=== PATIENT | male | born 1950 | race Caucasian/White ===

== ENCOUNTER 2024-01-19 13:46 | Emergency (ER) | payer BC, MEDICARE ==
[~2024-01-19] VITALS: Ht 181.6 cm; Wt 86.4 kg
[~2024-01-19 13:46] MED LIST: ASPI81TA52 PO; ATOR20TA PO; CYCL-1 PO; FENT1PAT13 TD; METF-436; NORCO10T PO; [UNRECOGNIZED DRUG - CODE] PO
[2024-01-19 13:47] VITALS: BP 159/101; PULSE 98; TEMP 98.2; O2SAT 99
[2024-01-19 15:34] VITALS: RESP 18
[2024-01-19] MEDS: HYDROcodone/acetaminophen 10/325mg tab PO ONE (15:34)
[2024-01-19] MEDS ORDERED: HYDR-3973 PO (16:10)
== END 2024-01-19 16:30 | disposition home or self-care (01) ==
LOC: ER 13:47
DX: M54.2 Cervicalgia (principal); M54.9 Dorsalgia, unspecified; I50.9 Heart failure, unspecified; Z79.82 Long term (current) use of aspirin; Z79.899 Other long term (current) drug therapy
CPT/HCPCS: 72040; 99283; 99284